=== PATIENT | male | born 1955 | race Caucasian/White ===

== ENCOUNTER 2017-08-03 00:54 | Emergency (ER) | payer OTHER ==
[2013-06-21 12:18] VITALS: BMI 29.5
[~2017-08-03 00:54] MED LIST: BACTRIM DS TABL1 TAB PO; COLACE100 MG PO; NORCO 5/325 TAB1 TA1 PO; PHENAZOPYRIDIN100 MG PO
== END 2017-08-03 02:30 | disposition home or self-care (01) ==
LOC: D.ER 00:54
DX: J01.90 Acute sinusitis, unspecified (principal); F17.200 Nicotine dependence, unspecified, uncomplicated